=== PATIENT | female | born 1955 | race Caucasian/White ===

== ENCOUNTER → 2021-10-12 | Outpatient (CLI) | payer MEDICARE, OTHER ==
[2021-10-12 18:25] LABS: Basophils # (A) 0.04 X 10*3/uL (0.00-0.10); Basophils % (A) 0.6 %; Eosinophils # (A) 0.26 X 10*3/uL (0.04-0.35); Eosinophils % (A) 3.7 %; HCT 38.5 % (37.2-46.3); HGB 12.4 g/dL (12.0-15.0); Immature Grans, Automated 0.3 %; Lymphocytes # (A) 2.43 X 10*3/uL (0.90-5.00); Lymphocytes % (A) 34.1 %; MCH 31.4 pg (27.0-32.0); MCHC 32.2 g/dL (32.0-37.0); MCV 97.5 fL (80.0-97.0); Monocytes # (A) 0.64 X 10*3/uL (0.20-1.00); NRBC Per 100 WBC 0 /100 WBCS (0.0-0.0); Neutrophils # (A) 3.73 X 10*3/uL (1.80-7.70); Neutrophils % (A) 52.3 %; Platelet Count 234 X 10*3/uL (140-440); RBC 3.95 X 10*6/uL (4.10-5.20); RDW 12.7 % (11.5-14.5); WBC 7.12 X 10*3/uL (4.50-10.00)
== END | disposition home or self-care (01) ==
LOC: LABPAT 10:34
PROVIDERS: ATTEND Obstetrics & Gynecology
DX: Z01.818 Encounter for other preprocedural examination (principal); I10 Essential (primary) hypertension; R93.89 Abnormal findings on diagnostic imaging of other specified body structures
CPT/HCPCS: 36415; 85025; 93005

== ENCOUNTER → 2021-10-27 | Day surgery (SDC) | payer MEDICARE, OTHER ==
[2021-10-23 16:10] VITALS: BMI 46.0
[~2021-10-27] MED LIST: DEXAMETHASONE SOD PHOSPHATE 4 MG/ML 1 ML VIAL IV ONE; KETOROLAC 15 MG/ML 1 ML VIAL ONE; LACTATED RINGERS 1,000 ML IV SCH; LIDOCAINE 1% (10MG/ML) FOR IV START INTRADERMA PRN; LIDOCAINE 2% (PF) 20 MG/ML 5 ML VIAL ONE; LIDOCAINE 4% (PF) 5 ML AMP IH ONE; MIDAZOLAM 2 MG/2 ML VIAL ONE; ONDANSETRON 4 MG/2 ML VIAL IVP ONE; PROPOFOL 10 MG/ML 20 ML VIAL IV ONE; Pre Op ABX Message 1 EACH MISC MISCELLANE ONE; SUCCINYLCHOLINE CHLORIDE 100 MG/5 ML SYR IV ONE; fentaNYL (PF) 50 MCG/ML 2 ML AMP IV PRN; fentaNYL (PF) 50 MCG/ML 2 ML AMP IVP ONE; fentaNYL (PF) 50 MCG/ML 2 ML AMP ONE
--- NOTE | 2021-10-27 11:39 | P.OP ---
Date of Procedure: 10/27/21 Preoperative Diagnosis: Thickened endometrium sonographically, postmenopausal status, morbid obesity Postoperative Diagnosis: Same, endometrial polyps noted hysteroscopically Procedure(s) Performed: Hysteroscopy, D&C Anesthesia: KOJOA Surgeon: Gabbie Morgan Estimated Blood Loss (ml): 20 IV fluids (ml): 75 Urine output (ml): 200 Pathology: other (Endometrial curettings and polyps) Condition: stable Disposition: PACU Description of Procedure: Patient is brought to the operating suite where a general anesthesia is administered with the fiberoptic scope, per Dr. Greene. The cervix, vagina, perineal bodies are all prepped and draped in the usual sterile fashion, with careful positioning of the lower extremities secondary to right leg immobility, utilizing Ger stirrups. Antibiotics are not deemed necessary. The appropriate timeout was performed to assure proper patient and procedural identification. Examination under anesthesia is essentially unremarkable. The bladder is drained for Mj 200 mL of clear yellow urine. Weighted speculum was placed into the vagina anterior lip of the cervix is grasped with a double-tooth tenaculum. The uterus sounds to a depth of 11 cm in the anteverted position. The cervix is gently and systematically dilated using Hanks dilators. The hysteroscope was placed, the cavity is infused with sterile saline. There are multiple polyps noted in the endometrial cavity, fleshy in a ppearance. The hysteroscope was removed. A medium sharp curette is used and all 4 quadrants of the uterine cavity is curettaged thoroughly, for a fair amount of tissue and several endometrial polyps. This is completed the hysteroscope was once again placed, the cavity appears clear. Instrumentation is removed from the vagina. Cervix is clean and dry. All sponge needle and instrument counts are correct. Patient is brought back to the recovery room in good condition with stable vital signs including pulse 58, blood pressure 110/67, 99% O2 saturation. She is given Toradol prior to leaving the operative suite. She will follow-up with me in the office in 2 weeks.
[2021-10-27 11:46] VITALS: TEMP 97.5
[2021-10-27 11:57] VITALS: RESP 16
[2021-10-27 12:48] VITALS: BP 110/73; PULSE 74
== END | disposition home or self-care (01) ==
LOC: OR 08:49
PROVIDERS: ATTEND Obstetrics & Gynecology
DX: N84.0 Polyp of corpus uteri (principal); D25.9 Leiomyoma of uterus, unspecified; E66.01 Morbid (severe) obesity due to excess calories; I10 Essential (primary) hypertension; E78.5 Hyperlipidemia, unspecified; F32.A Depression, unspecified; G47.33 Obstructive sleep apnea (adult) (pediatric); Z79.899 Other long term (current) drug therapy
CPT/HCPCS: 58558; 94640; 88305; J2001; J2250; J1100; J2405; J3010; J1885; J0330; J2704

== ENCOUNTER → 2024-09-03 | Outpatient (CLI) | payer MEDICARE, OTHER ==
[2024-09-03 11:57] LABS: INR 0.9 (<1.2); Prothrombin Time 10.1 sec (10.0-12.5)
[2024-09-03 16:34] LABS: ALT 18 U/L (8-44); AST 23 U/L (13-35); Albumin 4.1 g/dL (3.8-4.9); Albumin/Globulin Ratio 1.78 Ratio (1.60-3.17); Alkaline Phosphatase 69 U/L (41-126); Blood Urea Nitrogen 14.8 mg/dL (9.0-27.0); Calcium 9.3 mg/dL (8.7-10.3); Carbon Dioxide 24.1 mmol/L (21.6-31.8); Chloride 106 mmol/L (96-109); Globulin 2.3 g/dL (1.6-3.3); Glucose 113 mg/dL (70-110); Potassium 3.9 mmol/L (3.5-5.5); Sodium 142 mmol/L (135-145); Total Bilirubin 0.8 mg/dL (0.3-1.2); Total Protein 6.4 g/dL (6.2-8.2)
[2024-09-03 17:11] LABS: HCT 40.6 % (37.2-46.3); HGB 13.1 g/dL (12.0-15.0); MCH 31.1 pg (27.0-32.0); MCHC 32.3 g/dL (32.0-37.0); MCV 96.4 FL (80.0-97.0); Mean Platelet Volume 10.7 FL (9.5-12.2); NRBC Per 100 WBC 0 X 10*3/uL (0.00-0.01); Platelet Count 218 X 10*3/uL (140-440); RBC 4.21 X 10*6/uL (4.10-5.20); RDW 13.8 % (11.5-14.5); WBC 7.91 X 10*3/uL (4.50-10.00)
== END | disposition home or self-care (01) ==
LOC: LABPAT 10:23
PROVIDERS: ATTEND Orthopaedic Surgery
DX: Z01.812 Encounter for preprocedural laboratory examination (principal); Z22.322 Carrier or suspected carrier of Methicillin resistant Staphylococcus aureus; M16.11 Unilateral primary osteoarthritis, right hip
CPT/HCPCS: 80053; 85027; 85610; 85730; 86850; 86900; 86901; 87070; 93005

== ENCOUNTER 2024-09-12 10:03 | Day surgery (SDC) | payer MEDICARE, OTHER ==
[~2024-09-12 10:03] MED LIST changes: +DEXAMETHASONE SOD PHOSPHATE 10 MG/ML 1 ML VIAL IV PRN; -DEXAMETHASONE SOD PHOSPHATE 4 MG/ML 1 ML VIAL IV ONE; -KETOROLAC 15 MG/ML 1 ML VIAL ONE; -LACTATED RINGERS 1,000 ML IV SCH; -LIDOCAINE 1% (10MG/ML) FOR IV START INTRADERMA PRN; -LIDOCAINE 2% (PF) 20 MG/ML 5 ML VIAL ONE; -LIDOCAINE 4% (PF) 5 ML AMP IH ONE; -MIDAZOLAM 2 MG/2 ML VIAL ONE; -ONDANSETRON 4 MG/2 ML VIAL IVP ONE; +ONDANSETRON 4 MG/2 ML VIAL IVP PRN; -PROPOFOL 10 MG/ML 20 ML VIAL IV ONE; -Pre Op ABX Message 1 EACH MISC MISCELLANE ONE; -SUCCINYLCHOLINE CHLORIDE 100 MG/5 ML SYR IV ONE; +TRANEXAMIC 1,000 MG/100ML-NACL 1,000 MG in SALINE 1 100ML.BAG IV PRN; +TRANEXAMIC 1,000 MG/100ML-NACL 1,000 MG in SALINE 1 100ML.BAG IVPB PRN; -fentaNYL (PF) 50 MCG/ML 2 ML AMP IV PRN; -fentaNYL (PF) 50 MCG/ML 2 ML AMP IVP ONE; -fentaNYL (PF) 50 MCG/ML 2 ML AMP ONE
[2024-09-12] MEDS: LACTATED RINGERS 1,000 ML IV ONE ×2 (10:50→13:20)
[2024-09-12] MEDS: oxyCODONE ER 10 MG TAB.ER.12H PO PRN (11:26)
[2024-09-12] MEDS: ACETAMINOPHEN TAB 500 MG TAB PO PRN (11:26)
[2024-09-12] MEDS: DOCUSATE 100 MG CAP PO PRN (11:26)
[2024-09-12] MEDS: fentaNYL (PF) 50 MCG/ML 2 ML AMP IV PRN (11:28)
[2024-09-12] MEDS: FAMOTIDINE 20 MG/2 ML VIAL IVP PRN (11:34)
[2024-09-12] MEDS: DEXAMETHASONE SOD PHOSPHATE 4 MG/ML 1 ML VIAL IV ONE (11:34)
[2024-09-12] MEDS: ONDANSETRON 4 MG/2 ML VIAL IVP ONE (11:34)
[2024-09-12] MEDS: KETOROLAC 15 MG/ML 1 ML VIAL IVP PRN (11:34)
[2024-09-12] MEDS: MIDAZOLAM 2 MG/2 ML VIAL IV ONE (11:45)
[2024-09-12] MEDS ORDERED: KETAMINE HCL IN 0.9 % NACL 50 MG/5 ML SYRINGE ONE (12:00)
[2024-09-12] MEDS ORDERED: MIDAZOLAM 2 MG/2 ML VIAL ONE (12:00)
[2024-09-12] MEDS ORDERED: DEXAMETHASONE SOD PHOSPHATE 4 MG/ML 1 ML VIAL ONE (12:00)
[2024-09-12] MEDS ORDERED: fentaNYL (PF) 50 MCG/ML 2 ML AMP ONE (12:00)
[2024-09-12] MEDS ORDERED: diphenhydrAMINE 50 MG/ML 1 ML VIAL ONE (12:00)
[2024-09-12] MEDS ORDERED: TRANEXAMIC 1,000 MG/100ML-NACL PREMIX BAG ONE (12:00)
[2024-09-12] MEDS ORDERED: PROPOFOL 10 MG/ML 20 ML VIAL IV ONE (12:00)
[2024-09-12] MEDS ORDERED: ROPIVACAINE 5 MG/ML 30 ML VIAL ONE (12:00)
[2024-09-12] MEDS: ROPIVACAINE/EPI/CLONIDINE/KET 50 ML SYRINGE MISCELLANE PRN (12:31)
--- NOTE | 2024-09-12 13:46 | P.ANPRN ---
Procedure Note - Anesthesia - Nerve Block Performed Right [place] Single Time Out Performed: Yes ([id number]) Date of Procedure: 09/12/24 Procedure Start Time: :28 Procedure Stop Time: :32 Location of Patient: PreOp Indication: Acute Post-Operative Pain, Requested by Surgeon Specifically requested for management of pain by DrChasity: Alejandro Vargas Sedation Type: Sedate with meaningful contact maintained Preparation: Sterile Prep Position: Supine Catheter: None Needle Types: Pajunk Needle Gauge: 21 Ultrasound used to visualize needle placement: Yes Ultrasound used to observe medication spread: Yes Injectate: 0.5% Ropivacaine (see comment for volume) (30cc + decadron 4mg) Blood Aspirated: No Pain Paresthesia on Injection Noted: No Resistance on Injection: Normal Image Stored and Saved: Yes Events: Uneventful and Well Tolerated
[2024-09-12] MEDS ORDERED: NALOXONE 0.4 MG/ML 1 ML VIAL IV PRN (14:01)
[2024-09-12] MEDS ORDERED: hydrOXYzine pamoate 25 MG CAP PO PRN (14:01)
[2024-09-12] MEDS ORDERED: diazePAM 5 MG TAB PO PRN (14:01)
[2024-09-12] MEDS ORDERED: ONDANSETRON 4 MG/2 ML VIAL IVP PRN (14:01)
[2024-09-12] MEDS ORDERED: TEMAZEPAM 15 MG CAP PO PRN (14:01)
[2024-09-12] MEDS ORDERED: MAGNESIUM HYDROXIDE 2,400 MG/30 ML CUP PO PRN (14:01)
[2024-09-12] MEDS ORDERED: HYDROmorphone 0.5 MG/0.5 ML SYRINGE IVP PRN ×3 (14:01)
--- NOTE | 2024-09-12 14:01 | P.OP ---
Date of Procedure: 09/12/24 Preoperative Diagnosis: 1. Severe right hip osteoarthritis 2. BMI 40.5 3. Prior instrumented fusion lumbar spine Postoperative Diagnosis: Same Procedure(s) Performed: 1. Right direct anterior total hip arthroplasty 2. Application of negative pressure incisional wound VAC (DME device) less than 50 cm, incision measuring 15 cm Implants: 1. Trevon Trident II Acetabular Cup, Size #48 2. Trevon Insignia Size #5 Femoral Stem, High Offset 3. Dual Mobility OD 38 mm, ID 28 mm, -4 mm neck Anesthesia: regional, spinal Surgeon: Alejandro Vargas Injection Wax Molder #1: Jagdeep Rice Estimated Blood Loss (ml): 300 IV fluids (ml): 800 Pathology: none sent Condition: stable Disposition: PACU Indications for Procedure: I had a long discussion with the patient in the office on the potential risks and complications of an elective total hip replacement through a direct anterior approach. Risks discussed include, but are certainly not limited to, risks from anesthesia, superficial infection requiring local wound care or antibiotics, deep vicenta-prosthetic joint infection and the treatment required to eradicate infection, intraoperative fracture, postoperative periprosthetic fracture, damage to local blood vessels or nerves particularly the lateral femoral cutaneous nerve, delayed wound healing requiring local wound care or possibly surgical debridement, hip dislocation, leg length discrepancy, soft tissue irritation around the total hip implant such as iliopsoas tendinitis or trochanteric bursitis, wear and osteolysis from the implants, squeaking or audible noises, groin pain, thigh pain, heterotopic ossification, stiffness, aseptic loosening of the implants, dissatisfaction with surgical outcome, need for revision surgery, DVT, PE, swelling of the operative extremity, acute coronary event, stroke, failure to thrive, and possibly loss of life or limb. The patient understands that while these are the most common complications after an elective hip replacement there are certainly other less common complications possible. They were given ample time to ask questions regarding the potential complications of a hip replacement. Following our discussion the patient provided their verbal and written consent to go forward with an elective total hip replacement. Description of Procedure: The patient was identified in the preoperative holding area and the correct hip was marked with my initials. I reviewed the procedure and consent with the patient. All of their questions were answered. The patient was then brought back into the operating room by anesthesia. While on the [facility] anesthesia was administered by the anesthesia team. Preoperative antibiotics and tranexamic acid were also given. After the patient was under anesthesia I examined their ankles to determine their preoperative leg length discrepancy. The skin over the anterior aspect of the hip was shaved to remove hair over the site of planned incision. Both feet and ankles were padded with webril and boots for the [place] were applied. The patient was then carefully transferred onto the [place] table. A perineal post was immediately placed. The arms were placed on arm holders and were well-padded. Both boots were secured to the spars on the [place] table. The patient was positioned so that the pelvis was centered over the post. Nonsterile drapes were applied. A timeout was performed identifying the correct patient, operative extremity, and procedure. At this point fluoroscopy was brought in to take preoperative images of the pelvis and operative hip. Using the standing AP pelvis from the office as a template, a comparable image was obtained with fluoroscopy. A metallic bar was used to create a bi-ischial line for use as a reference to leg length adjustments during the procedure. Global offset was also measured on both the operative and nonoperative leg. Fluoroscopy was then brought out and a pre-scrub using a chlorhexidine scrub brush was performed. The operative limb was then prepped and draped in the standard sterile fashion. An anterior longitudinal incision was made lateral and distal to the ASIS. The skin and subcutaneous tissues were incised sharply. The underlying tensor fascia was identified and incised in its midportion. The fascia was dissected free from the underlying muscle and the muscle belly was retracted. A blunt tipped cobra retractor was placed over the superior neck under the muscle fibers of the gluteus minimus. The deep enveloping fascia of the tensor was incised. The anterior leash of vessels were then identified and cauterized. The fascia between the rectus and the capsule was then incised and the pre-capsular fat was excised. A second Cobra was placed inferior to the neck. The interval between the rectus and iliocapsularis and the hip capsule was developed and a retractor was placed carefully over the anterior rim of the acetabulum. A T-shaped anterior capsulotomy was performed. The superior capsular leaflet was left in place in the inferior capsular flap was excised. The Cobra retractors were placed intracapsularly. We then made a femoral neck osteotomy according to preoperative and intraoperative templating and confirmed the level of the osteotomy using fluoroscopic imaging. The femoral head was removed, passed off to the back table, and sized. The superior capsular flap was excised. Retract ors were placed circumferentially exposing the acetabulum. We then circumferentially debrided the acetabulum free of labrum and osteophytes. The pulvinar was removed to fully visualize the cotyloid fossa. We then sequentially reamed to achieve peripheral fit and excellent bleeding subchondral bone. The socket was thoroughly irrigated. The acetabular component was impacted into the appropriate position using fluoroscopy to guide version, inclination, and depth of insertion taking care to have a comparable image of the AP pelvis to the standing image taken in the office. An excellent press-fit was achieved and final position was confirmed using fluoroscopy. The press fit was augmented with a bony cancellus dome screw. The liner was then impacted into the socket. Attention was then turned to the femur. The remnant dorsal lateral capsule was excised. The short external rotators were visible and protected. A bone hook was used to confirm appropriate translation of the trochanter away from the acetabulum. The leg was then extended and adducted and the bone hook was used to elevate the femur for broaching. A box osteotome and blunt tipped canal sound was then utilized to gain access to the femoral canal. We then sequentially broached the femur in appropriate anteversion until excellent torsional stability was achieved. The neck cut was brought flush to the trial broach with a calcar planar. A trial neck and head were then placed onto the broach and the hip was atraumatically reduced under direct visualization. External rotation to 90 was performed to assess stability. Fluoroscopy was brought in. An AP and lateral fluoroscopic image of the proximal femur was obtained to assess position and fill of the trial broach. An AP of the pelvis was then obtained and matched to the preoperative image taken. A bi-ischial bar was then placed and measurements were taken to assess changes in length and offset. The hip was then carefully dislocated, the proximal femur was exposed, and the trial implants were removed. The wound and proximal femur was thoroughly irrigated using sterile saline and pulsatile lavage. The final femoral implant was dispensed and gently tapped into place generating an excellent press-fit. The trunnion was cleansed and the final head was tapped into place to engage the Juárez taper. The acetabulum was irrigated and visualized to be free of debris. The hip was carefully reduced. Stability was checked clinically with external rotation to 90 and there was no evidence of instability. Final fluoroscopic images were taken. The wound was then thoroughly irrigated and soaked with a dilute Betadine rinse for 3 minutes. 3 L of sterile saline was irrigated through the wound using pulsatile lavage. Local anesthetic cocktail was injected into the soft tissues around the surgical field. The wound was then closed in layers. An incisional wound VAC was applied over the closed incision due to the patient body habitus. The drapes were taken down and the patient was carefully transferred off of the [place] table. Following removal of the boots the leg lengths felt acceptable. The patient was then taken to recovery room having tolerated the procedure well. Jagdeep Rice PA-C was required as a skilled interior design assistant due to the complexity of surgery for patient positioning, draping, exposure, retraction, closure of wound and application of dressing. PLAN: The patient can weight-bear as tolerated on the operative extremity. 2 doses of postoperative antibiotics. DVT prophylaxis with aspirin 81 mg twice a day based on preoperative risk stratification. Physical therapy for gait training.
--- NOTE | 2024-09-12 14:30 | FL ---
EXAMINATION TYPE: FL guidance operating room, XR Hip Limited RT DATE OF EXAM: 09/12/2024 2:00 PM COMPARISON: Pre Operative Images if available both CT/MRI or plain film CLINICAL INDICATION: Female, 69 years old with history of RT ANTERIOR HIP; TECHNIQUE: FL guidance operating room, XR Hip Limited RT, multiple fluoroscopic images provided for p rocedure. DAP: 3.7479 mGym2 Gycm2 uGym2 cGycm2 or equivalent. FINDINGS: Fluoroscopic images during internal fixation/arthroplasty demonstrate hardware in appropriate positio n. Hardware appears intact. No immediate complication identified. IMPRESSION: 1. No evidence for intraoperative complication. 2. Please see the operative/procedural note for further details. [facility], , 09/12/2024 2:28 PM
[2024-09-12] MEDS: LACTATED RINGERS 1,000 ML IV SCH (16:01)
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
[2024-09-12] MEDS: HYDROcodone/APAP 10-325MG 1 EACH TAB PO PRN (18:09)
[2024-09-12] MEDS: SENNOSIDES-DOCUSATE SODIUM 1 EACH TAB PO SCH (20:43)
[2024-09-12] MEDS: ASPIRIN 81 MG PO SCH (20:43)
[2024-09-12] MEDS: SODIUM CHLORIDE 0.9% 1,000 ML IV SCH (20:44)
[2024-09-13] MEDS: HYDROcodone/APAP 5-325MG 1 EACH TAB PO PRN (01:23)
--- NOTE | 2024-09-13 08:06 | P.DS ---
Providers Attending physician: Alejandro Vargas Consults: 09/12/24 14:01 Consult Physician Routine Consulting Provider: Akin Myers Consult Reason/Comments: post op medical managemetn Do you want consulting provider notified?: Yes Primary care physician: Zack Thomas [facility] Course: This is a 69-year-old patient, with past medical history of severe right hip osteoarthritis, who failed nonsurgical conservative management. On 09/12/2024 the patient presented to the [facility] pre-op department for scheduled direct anterior total hip arthroplasty with Dr. Vargas. The patient tolerated the procedure well. The patient was transferred to the orthopedic floor. The patient had no acute events over night. The patient's pain has been well- controlled. Patient was examined at bedside. Patient is resting comfortably in bed. No apparent distress. They are awake, alert and able to answer questions. Inspection: The surgical dressing is intact, there is no drainage or strikethrough. The skin surrounding the dressing is free of erythema. There is mild swelling in the operative thigh. Palpation: The operative calf is soft to compression. No calf tenderness. Neurovascular: Operative femoral nerve function is intact. The patient is able to actively plantarflex and dorsiflex their operative ankle and toes. Operative extremity sensation is intact to light touch throughout Their operative foot appears well perfused. Start form completed and placed in the patient's chart. Patient will work with physical therapy and if passed physical therapy and cleared by internal medicine can discharge home today. We appreciate internal medicine for perioperative medical management. Plan follow up in two weeks in our office. Please see med rec for a list of accurate medications. Assessment: Postop day #1 status post right total hip arthroplasty for severe right hip osteoarthritis Right hip pain Multiple medical problems Plan - Discharge Summary Discharge Rx Participant: Yes New Discharge Prescriptions: New HYDROcodone/APAP 5-325MG [[place] 5] 1 - 2 each PO Q6HR PRN #48 tab PRN Reason: Pain Omeprazole 20 mg PO DAILY #30 tab Aspirin 81 mg PO BID #60 tab Sennosides-Docusate Sodium [Senokot-S] 1 tab PO BID PRN #60 tablet PRN Reason: Constipation No Action busPIRone HCl [Buspar] 10 mg PO BID ALPRAZolam [Xanax] 0.25 mg PO DAILY PRN PRN Reason: Anxiety allopurinoL [Zyloprim] 300 mg PO HS Bisoprolol-Hctz 5-6.25 mg [Ziac 5-6.25 MG] 1 tab PO DAILY Sertraline [Zoloft] 50 mg PO DAILY Celecoxib [CeleBREX] 100 mg PO DAILY Simvastatin [Zocor] 40 mg PO HS traMADol HCL 50 mg PO Q6H PRN PRN Reason: Pain Discharge Medication List Bisoprolol-Hctz 5-6.25 mg [Ziac 5-6.25 MG] 1 tab PO DAILY 10/23/21 [History] allopurinoL [Zyloprim] 300 mg PO HS 10/23/21 [History] ALPRAZolam [Xanax] 0.25 mg PO DAILY PRN 09/07/24 [History] Celecoxib [CeleBREX] 100 mg PO DAILY 09/07/24 [History] Sertraline [Zoloft] 50 mg PO DAILY 09/07/24 [History] Simvastatin [Zocor] 40 mg PO HS 09/07/24 [History] busPIRone HCl [Buspar] 10 mg PO BID 09/07/24 [History] traMADol HCL 50 mg PO Q6H PRN 09/07/24 [History] Aspirin 81 mg PO BID #60 tab 09/13/24 [Rx] HYDROcodone/APAP 5-325MG [[place] 5] 1 - 2 each PO Q6HR PRN #48 tab 09/13/24 [Rx] Omeprazole 20 mg PO DAILY #30 tab 09/13/24 [Rx] Sennosides-Docusate Sodium [Senokot-S] 1 tab PO BID PRN #60 tablet 09/13/24 [Rx] Follow up Appointment(s)/Referral(s): Alejandro Vargas MD [Medical Doctor] - 2 Weeks Activity/Diet/Wound Care/Special Instructions: 1. Weight-bear as tolerated on your operative extremity unless instructed oth erwise. Use a walker or other assistive device to ambulate. 2. Leave surgical wound VAC dressing in place. Keep charged. If it becomes loose please contact the office. 3. It is okay to shower with your surgical dressing, but do not submerge in water (no hot tubs, bath's, swimming etc.) 4. Take your blood clot prevention medication as prescribed (aspirin, Eliquis, Xarelto, and Plavix are commonly prescribed medications for blood clot prevention) 5. While taking [place] or Percocet for pain take a stool softener (Ex: Colace) and drink lots of water. 6. Keep all follow-up appointments as scheduled. You will usually be seen in 1-2 weeks following surgery. 7. Please contact the office with any questions or concerns [phone] Discharge Disposition: HOME WITH HOME HEALTH SERVICES
[2024-09-13 08:58] VITALS: BP 104/66
[2024-09-13 09:15] LABS: Basophils # (A) 0.02 X 10*3/uL (0.00-0.10); Basophils % (A) 0.2 %; Eosinophils # (A) 0 X 10*3/uL (0.04-0.35); Eosinophils % (A) 0 %; HCT 32.6 % (37.2-46.3); HGB 10.4 g/dL (12.0-15.0); Lymphocytes # (A) 1.23 X 10*3/uL (0.90-5.00); Lymphocytes % (A) 9.2 %; MCHC 31.9 g/dL (32.0-37.0); MCV 97.3 FL (80.0-97.0); Mean Platelet Volume 10.7 FL (9.5-12.2); Monocytes # (A) 0.96 X 10*3/uL (0.20-1.00); Monocytes % (A) 7.2 %; NRBC Per 100 WBC 0 X 10*3/uL (0.00-0.01); Neutrophils # (A) 11.01 X 10*3/uL (1.80-7.70); Neutrophils % (A) 82.8 %; Platelet Count 222 X 10*3/uL (140-440); RBC 3.35 X 10*6/uL (4.10-5.20); RDW 13.7 % (11.5-14.5)
[2024-09-13] MEDS: diazePAM 5 MG TAB PO PRN (10:31)
[2024-09-13] MEDS ORDERED: MULTIVITAMINS, THERA 1 EACH TAB PO SCH (12:00)
[2024-09-13 14:05] VITALS: PULSE 69; RESP 17; TEMP 98.2
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
== END 2024-09-13 14:50 | disposition home health service (06) ==
LOC: OR 10:03 → 4SSUR 14:10 → OR 09-13 14:50
PROVIDERS: ATTEND Orthopaedic Surgery
DX: M16.11 Unilateral primary osteoarthritis, right hip (principal); M17.11 Unilateral primary osteoarthritis, right knee; E78.5 Hyperlipidemia, unspecified; I10 Essential (primary) hypertension; G47.33 Obstructive sleep apnea (adult) (pediatric); F41.8 Other specified anxiety disorders; E79.0 Hyperuricemia without signs of inflammatory arthritis and tophaceous disease; E66.01 Morbid (severe) obesity due to excess calories; Z68.41 Body mass index [BMI] 40.0-44.9, adult; Z85.3 Personal history of malignant neoplasm of breast; Z90.49 Acquired absence of other specified parts of digestive tract; Z98.51 Tubal ligation status; Z80.1 Family history of malignant neoplasm of trachea, bronchus and lung; Z88.0 Allergy status to penicillin; Z79.1 Long term (current) use of non-steroidal anti-inflammatories (NSAID); Z79.899 Other long term (current) drug therapy
CPT/HCPCS: 27130; 64473; 97161; 85025; 73501; J2250; J1100; J0690 ×2; J2405; J3010; J3490; J1885